=== PATIENT | male | born 1980 | race Native Hawaiian/Other Pacific Islander ===

== ENCOUNTER → 2020-01-04 13:52 | Outpatient (CLI) | payer OTHER | END | disposition home or self-care (01) | LOC: AMB 13:52 | DX: Z04.1 Encounter for examination and observation following transport accident (principal) ==

== ENCOUNTER 2020-01-04 15:02 | Emergency (ER) | payer OTHER ==
[~2020-01-04] VITALS: Ht 185.4 cm; Wt 86.2 kg
[2020-01-04 16:51] VITALS: BP 128/93; TEMP 97.8
== END 2020-01-04 16:52 | disposition home or self-care (01) ==
LOC: ED 15:02
DX: S33.5XXA Sprain of ligaments of lumbar spine, initial encounter (principal); V89.2XXA Person injured in unspecified motor-vehicle accident, traffic, initial encounter
CPT/HCPCS: 81000; 99283